=== PATIENT | male | born 1960 | race Caucasian/White ===

== ENCOUNTER 2023-10-03 13:12 | Inpatient (IN) | payer OTHER ==
[~2023-10-03] VITALS: Ht 172.7 cm; Wt 83.6 kg
[2023-10-03 13:41] LABS: BASO % 0.2 % (0.0-1.0); EOS # 0.2 10^3/uL (0.0-0.5); EOS % 1.9 % (0.0-3.0); HEMATOCRIT 39.2 % (42.0-52.0); HEMOGLOBIN 13.6 g/dl (13.5-17.5); LYMPH % 9.6 % (24.0-44.0); MEAN CORPUSCULAR HEMOGLOBIN 34.3 pg (27.0-33.0); MEAN CORPUSCULAR HGB CONC 34.7 g/dl (32.0-36.5); MONO # 0.8 10^3/uL (0.0-0.8); MONO % 7.5 % (2.0-8.0); NEUTROPHILS # 8.2 10^3/uL (1.5-8.5); PLATELET COUNT, AUTOMATED 179 10^3/uL (150-450); RED BLOOD COUNT 3.96 10^6/uL (4.30-6.10); WHITE BLOOD COUNT 10.3 10^3/uL (4.0-10.0)
[2023-10-03 13:56] LABS: INR 1.11
[2023-10-03 13:57] LABS: PARTIAL THROMBOPLASTIN TIME 28.1 SECONDS (24.8-34.2)
[2023-10-03 14:07] LABS: CK-MB VALUE MASS < 1.0 NG/ML (<3.6)
[2023-10-03 14:08] LABS: LIPASE 18 U/L (12-53)
[2023-10-03 14:10] LABS: ALKALINE PHOSPHATASE 75 U/L (46-116); ALT/SGPT 19 U/L (7.0-40); AST/SGOT 28 U/L (<34); BILIRUBIN,DIRECT 0.4 MG/DL (<0.4); BILIRUBIN,TOTAL 0.8 MG/DL (0.3-1.2); BLOOD UREA NITROGEN 6 MG/DL (9-23); CALCIUM LEVEL 8.6 MG/DL (8.3-10.6); CARBON DIOXIDE LEVEL 26 MMOL/L (20-31); CHLORIDE LEVEL 106 MMOL/L (98-107); CPK CREATINE PHOSPHOKINASE 342 U/L (46-171); CREATININE FOR GFR 0.47 MG/DL (0.70-1.30); GLOMERULAR FILTRATION RATE > 60.0 (>49); GLUCOSE, FASTING 104 MG/DL (74-106); MB/CK RELATIVE INDEX 0.29 (< OR =4); SODIUM LEVEL 139 MMOL/L (136-145)
[2023-10-03 14:12] LABS: FREE T4 1.08 NG/DL (0.89-1.76); THYROID STIMULATING HORMONE 2.564 uIU/ML (0.55-4.78)
[2023-10-03 14:13] LABS: RSV AMPLIFICATION NEGATIVE (NEGATIVE)
[2023-10-03 15:35] LABS: CK-MB VALUE MASS 1.2 NG/ML (<3.6)
[2023-10-03 15:36] LABS: MB/CK RELATIVE INDEX 0.4 (< OR =4)
[2023-10-03] MEDS ORDERED: KETOROLAC 30 MG/ML 1ML VIAL IV ONE (17:25)
[2023-10-03] MEDS ORDERED: ISOVUE-370 76% 100ML VIAL As Ordered ONE (17:27)
[2023-10-03] MEDS ORDERED: ONDANSETRON 4MG 2ML VIAL IV ONE (18:25)
[2023-10-03] MEDS ORDERED: DOXYCYCLINE HYCLATE 100MG TABLET PO ONE (18:25)
[2023-10-03] MEDS ORDERED: cefTRIAXone SOD 1 GM in D5W MINI-BAG PLUS 50 ML IV ONE (18:25)
[2023-10-03] MEDS ORDERED: MORPHINE 4 MG/ML 1ML VIAL IV PRN (18:25)
[2023-10-03] MEDS ORDERED: HOME MED LIST COMPLETE! XX SCH (20:30)
[2023-10-03] MEDS ORDERED: HYDROMORPHONE HCL 0.5 MG/ 0.5 ML SYRINGE IV PRN (21:05)
[2023-10-03 23:42] VITALS: BP 152/89; TEMP 97.7; O2SAT 96
[2023-10-03] MEDS ORDERED: ACETAMINOPHEN TAB 650MG DOSE (2X325MG) PO PRN (23:55)
[2023-10-03] MEDS ORDERED: ALBUTEROL SULFATE 2.5MG/0.5ML INH NEB SOLN NEB PRN (23:55)
[2023-10-03] MEDS ORDERED: NS 1,000 ML IV SCH (23:55)
[2023-10-04] MEDS: THIAMINE 100 MG TAB PO SCH ×2 (00:34→09:18)
[2023-10-04] MEDS ORDERED: KETOROLAC 30 MG/ML 1ML VIAL IV PRN (01:00)
[2023-10-04] MEDS ORDERED: ONDANSETRON 4MG 2ML VIAL IV PRN (01:00)
[2023-10-04] MEDS: IPRATROPIUM 0.5MG/ALBUTEROL 2.5MG INH SOL UD 3ML (DUONEB) NEB SCH ×2 (01:24→07:28)
[2023-10-04] MEDS: HEPARIN SOD (PORCINE) 5000UNITS/ML 1ML VIAL/SYRINGE SC SCH ×2 (05:45→13:00)
[2023-10-04 06:21] VITALS: BP 166/82; TEMP 98.1; O2SAT 96
[2023-10-04 07:59] LABS: BASO % 0.2 % (0.0-1.0); EOS # 0.2 10^3/uL (0.0-0.5); HEMATOCRIT 35.3 % (42.0-52.0); LYMPH # 0.9 10^3/uL (1.5-5.0); LYMPH % 15.3 % (24.0-44.0); MEAN CORPUSCULAR HEMOGLOBIN 33.9 pg (27.0-33.0); MEAN CORPUSCULAR VOLUME 99.7 fl (80.0-96.0); MONO # 0.5 10^3/uL (0.0-0.8); MONO % 9.1 % (2.0-8.0); NEUTROPHILS # 4.3 10^3/uL (1.5-8.5); NEUTROPHILS % 72.1 % (36.0-66.0); PLATELET COUNT, AUTOMATED 161 10^3/uL (150-450); RED BLOOD COUNT 3.54 10^6/uL (4.30-6.10)
[2023-10-04 08:22] LABS: BLOOD UREA NITROGEN 8 MG/DL (9-23); CALCIUM LEVEL 7.9 MG/DL (8.3-10.6); CARBON DIOXIDE LEVEL 27 MMOL/L (20-31); CHLORIDE LEVEL 105 MMOL/L (98-107); CREATININE FOR GFR 0.52 MG/DL (0.70-1.30); GLOMERULAR FILTRATION RATE > 60.0 (>49); GLUCOSE, FASTING 96 MG/DL (74-106); POTASSIUM SERUM 3.8 MMOL/L (3.5-5.1); SODIUM LEVEL 137 MMOL/L (136-145)
[2023-10-04 08:33] LABS: PROCALCITONIN 0.04 ng/ml
[2023-10-04] MEDS ORDERED: FOLIC ACID 1MG TAB PO SCH (09:00)
[2023-10-04] MEDS ORDERED: amLODIPine 5 MG TAB PO SCH (09:00)
[2023-10-04] MEDS ORDERED: LIDOCAINE 5% (LIDODERM) PATCH TD SCH (09:00)
[2023-10-04] MEDS ORDERED: DOXYCYCLINE HYCLATE 100MG TABLET PO SCH (09:00)
[2023-10-04] MEDS ORDERED: MULTIVITAMINS/MINERALS THERAP 1 TAB PO SCH (09:00)
[2023-10-04] MEDS ORDERED: NICOTINE 7 MG/24 HR TRANSDERMAL TD SCH (09:00)
[2023-10-04 10:36] VITALS: BP 160/88
[2023-10-04 10:41] VITALS: BP 158/90
[2023-10-04] MEDS ORDERED: PERCOCET 5MG/325MG TAB PO PRN (11:00)
[2023-10-04] MEDS ORDERED: MORPHINE 2 MG/ML 1ML VIAL IV ONE (11:00)
[2023-10-04 13:20] VITALS: BP 138/80
[2023-10-04 14:00] VITALS: BP 160/89; TEMP 97.7; O2SAT 98
[2023-10-04] MEDS ORDERED: LEVO1TAB40 PO (14:34)
[2023-10-04] MEDS ORDERED: THIA100TA PO (14:34)
[2023-10-04] MEDS ORDERED: FOLI1TAB11 PO (14:34)
[2023-10-04] MEDS ORDERED: VENTAER INH (14:34)
[2023-10-04] MEDS ORDERED: AMLO1TAB24 PO (14:34)
[2023-10-04] MEDS ORDERED: OXYC1TAB23 PO (14:44)
[2023-10-04 15:11] VITALS: BP 156/88
[2023-10-04] MEDS ORDERED: cefTRIAXone SOD 1 GM in D5W MINI-BAG PLUS 50 ML IV SCH (18:00)
== END 2023-10-04 15:40 | disposition home or self-care (01) | DRG 194 ==
LOC: EDBD 13:12 → M ED 13:12 → M ED INP 21:04 → ENRESERV 22:32 → M MS5PR 23:20
PROVIDERS: ADMIT Internal Medicine; ATTEND Internal Medicine
DX: J18.9 Pneumonia, unspecified organism (principal); J44.0 Chronic obstructive pulmonary disease with (acute) lower respiratory infection; F17.210 Nicotine dependence, cigarettes, uncomplicated; R91.8 Other nonspecific abnormal finding of lung field; F10.20 Alcohol dependence, uncomplicated; I10 Essential (primary) hypertension; H40.9 Unspecified glaucoma; Z66 Do not resuscitate; Z90.79 Acquired absence of other genital organ(s); Z20.822 Contact with and (suspected) exposure to COVID-19